=== PATIENT | male | born 1945 | race Caucasian/White ===

== ENCOUNTER 2017-01-27 07:36 | Day surgery (SDC) | payer MEDICARE ==
[2017-01-27 09:49] VITALS: BP 137/82
== END 2017-01-27 09:39 | disposition home or self-care (01) ==
LOC: SDC 07:36
PROC: 08RK3JZ Replacement of Left Lens with Synthetic Substitute, Percutaneous Approach (ICD-10-PCS; principal; 2017-01-27)
DX: H26.9 Unspecified cataract (principal)